=== PATIENT | female | born 1970 | race Caucasian/White ===

== ENCOUNTER 2019-11-02 18:29 | Emergency (ER) | payer OTHER ==
[~2019-11-02] VITALS: Ht 162.6 cm; Wt 78.9 kg
[2019-11-02 18:45] VITALS: BP 145/89
--- NOTE | 2019-11-02 21:00 | NUR ---
PATIENT AMBULATED TO CHAIR A.
--- NOTE | 2019-11-02 21:00 | NUR ---
49 Y/O FEMALE STATES SUBJECTIVE FEVER, CHILLS, HEADACHE, BODY ACHES, WEAKNESS, CP WITH COUGH X 4 DAYS. LUNG SOUNDS CLEAR/DIMINISHED. PAIN IS A 7/10; GENERALIZED PAIN AND CHEST PAIN WHILE COUGHING. PATIENT TOOK NYQUIL WITH NO RELIEF. DENIES N/V/D. ERMD MADE AWARE OF STATUS. PMH:DIABETES RX:DENIES NKDA
[2019-11-02] MEDS ORDERED: NACL 0.9% 1,000 ML IV ONE (22:00)
[2019-11-02] MEDS ORDERED: ONDANSETRON 4 MG/2 ML VIAL IVP ONE (22:00)
[2019-11-02] MEDS ORDERED: KETOROLAC 15 MG/ML VIAL IVP ONE (22:00)
--- NOTE | 2019-11-02 22:00 | NUR ---
flu swab collected and picked up by lab.
[2019-11-02 22:54] LABS: BASOPHILS % (AUTO) 0.6 % (0.0-2.0); HEMATOCRIT 45.7 % (36-48); LYMPHOCYTES # (AUTO) 0.8 K/uL (2.5-16.5); LYMPHOCYTES % (AUTO) 15.9 % (20.5-51.1); MEAN CORPUSCULAR HEMOGLOBIN 29 pg (27-31); MEAN CORPUSCULAR HGB CONC 33 g/dL (33-37); MEAN CORPUSCULAR VOLUME 88.6 fL (80-94); MONOCYTES # (AUTO) 0.4 K/uL (0.8-1.0); MONOCYTES % (AUTO) 7.6 % (1.7-9.3); NEUTROPHILS # (AUTO) 3.7 K/uL (1.8-7.7); NEUTROPHILS % (AUTO) 75.9 % (42.2-75.2); PLATELET COUNT (AUTO) 292 K/uL (140-450); RED BLOOD CELL COUNT(AUTO) 5.16 MIL/uL (4.20-5.40); RED CELL DISTRIBUTION WIDTH 13.1 % (11.6-13.7); WHITE BLOOD COUNT (AUTO) 4.9 K/uL (4.8-10.8)
[2019-11-02] MEDS ORDERED: ACETAMINOPHEN EXTRA STRENGTH 500 MG TAB PO ONE (23:00)
[2019-11-02 23:11] LABS: ANION GAP 17.2 (8-16); CARBON DIOXIDE 20.9 mmol/L (21-32); POTASSIUM 4.1 mmol/L (3.5-5.1)
[2019-11-02 23:17] LABS: ALBUMIN 3.5 g/dL (3.4-5.0); TOTAL BILIRUBIN 0.3 mg/dL (0.0-1.0)
[2019-11-03 00:25] VITALS: BP 138/79
--- NOTE | 2019-11-03 00:25 | NUR ---
Patient discharged with v/s stable. Written and verbal after care instructions given and explained. Patient alert, oriented and verbalized understanding of instructions. Ambulatory with steady gait. All questions addressed prior to discharge. ID band removed. Patient advised to follow up with PMD. Rx of IBUPROFEN; PROMETHAZINE; METFORMIN; ZOFRAN given. Patient educated on indication of medication including possible reaction and side effects. Opportunity to ask questions provided and answered.
== END 2019-11-03 00:25 | disposition home or self-care (01) ==
LOC: MED 18:29
DX: J10.1 Influenza due to other identified influenza virus with other respiratory manifestations (principal); E11.9 Type 2 diabetes mellitus without complications; R07.89 Other chest pain
CPT/HCPCS: 71045; 80053; 85025; 87804; 96361; 96374; 96375; 99284; J1885; J2405